=== PATIENT | female | born 2000 | race Asian ===

== ENCOUNTER 2025-07-12 07:48 | Outpatient (REF) | payer OTHER, SELFPAY ==
[2025-07-12 08:52] LABS: MANUAL DIFF FLAG NO
[2025-07-12 09:12] LABS: Hematocrit 39.1 % (37.0-47.0); Hemoglobin 13.0 g/dl (12.0-16.0); Imm Gran Abs Auto 0.01 X10*3/uL (0.00-0.03); Imm Gran Pct Auto 0.2 % (0.0-0.4); Lymphocytes Absolute Auto 2.0 X10*3/uL (1.2-4.9); Mean Corpuscular HGB Conc 33.2 g/dl (31.0-35.0); Mean Corpuscular Hemoglobin 29.2 pg (27.0-33.0); Mean Corpuscular Volume 87.9 fL (80.0-98.0); NRBC Abs Auto 0.000 X10*3/uL (0.0-0.012); NRBC Pct Auto 0.0 /100WBC (0.0-0.2); Platelet Count 146 X10*3/uL (160-400); Red Blood Count 4.45 X10*6/uL (4.20-5.50); White Blood Count 4.6 X10*3/uL (4.8-10.8)
[2025-07-12 09:42] LABS: Alanine Aminotransferase 23 U/L (0-31); Albumin Level 4.8 g/dL (3.5-5.0); Alkaline Phosphatase 45 U/L (39-117); Anion Gap 11 (12-20); Aspartate Amino Transferase 25 U/L (5-31); Blood Urea Nitrogen 15 mg/dL (9-16); Calcium 9.6 mg/dL (8.4-10.2); Carbon Dioxide 26 mmol/L (22-29); Chloride 106 mmol/L (96-108); Estimated Glomerular Filt Rate > 60; Potassium 4.3 mmol/L (3.3-5.1); Sodium 139 mmol/L (135-145); Total Protein 7.8 g/dL (6.5-8.0)
[2025-07-12 10:00] LABS: Free T4 (Free Thyroxine) 1.08 ng/dL (0.71-1.85)
[2025-07-12 10:08] LABS: Folate 8.9 ng/mL (> or = 4.0); Vitamin B12 886 pg/mL (200-900)
[2025-07-15 10:13] LABS: Anti Nuclear Antibody Screen NEGATIVE (NEGATIVE)
== END 2025-07-12 07:49 | disposition home or self-care (01) ==
LOC: HO.LAB 07:48
DX: Z00.00 Encounter for general adult medical examination without abnormal findings (principal); Z13.0 Encounter for screening for diseases of the blood and blood-forming organs and certain disorders involving the immune mechanism; Z13.21 Encounter for screening for nutritional disorder; Z13.1 Encounter for screening for diabetes mellitus; Z13.29 Encounter for screening for other suspected endocrine disorder; D69.6 Thrombocytopenia, unspecified
CPT/HCPCS: 36415; 80053; 82306; 82607; 82746; 84439; 84443; 85025; 85652; 86038; 86140; 96127; 99385

== ENCOUNTER 2025-07-12 07:48 | Outpatient (AMB) | payer OTHER, SELFPAY ==
[2025-07-12 07:53] VITALS: BP 106/72; PULSE 73; O2SAT 98; BMI 20.5
--- NOTE | 2025-07-12 07:53 | A.OFFPC_ITS ---
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 Physical annual Client Services Specialist Required: Yes Client Services Specialist Language: Danish Allergies No Known Allergies Allergy (Verified 07/12/25 07:59) Medication List - Last Reconciled 07/12/25 by Roshni Gilman PA-C No Known Home Meds Tobacco use date assessed: 07/12/25 Dental Screening Dental Screen Date: 07/12/25 Did you have a dental visit in the last 12 months?: No Did you have a dental problem in the last 6 months where you did not have access to dental care?: No Was dental information given to patient?: No HPI 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 Presenting with a wellness visit. Denies current medications, allergies, and significant past medical history. Reports regular menstrual cycles, denies control use, and has not had a Pap smear. She has no concerns today. vaccines: HPV UTD, TDaP 2021 pap smear: referral placed to sales and marketing analyst today [facility] Family History Mother No problems noted. 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 1. Little interest or pleasure in doing things: more than half the days 2. Feeling down, depressed, or hopeless: not at all 3. Trouble falling or staying asleep, or sleeping too much: not at all 4. Feeling tired or having little energy: more than half the days 5. Poor appetite or overeating: not at all 6. Feeling bad about yourself - or that you are a failure or have let yourself or your family down: not at all 7. Trouble concentrating on things, such as reading the newspaper or watching television: not at all 8. Moving or speaking so slowly that other people could have noticed. Or the opposite - being so fidgety or restless that you have been moving around a lot more than usual: not at all 9. Thoughts that you would be better off or of hurting yourself in some way: not at all Total score: 4 Depression Screening Interpretation: Negative (denies depression) Depression Screening Done: Yes 49574 - PHQ-9 Billing: Yes Source: Developed by Drs. Alec Combs, Patricia Wallace, Salbador Naranjo and colleagues, with an educational anita from [employer]. Thrive Questionnaire Date Thrive assessed: 07/12/25 I am a: Patient What is your living situation today?: I have a steady place to live Within the past 12 months, did the food you bought not last and you didn't have the money to get more?: Never true Within the past 12 months, did you worry whether your food would run out before you got money to buy more?: Never true Do you have trouble paying for medicines?: No Do you have trouble getting transportation to medical appointments?: No Do you have trouble paying your heating and electricity bill?: No Do you have trouble taking care of your child, family member or friend?: No Do you have trouble with day-to-day activities such as bathing, preparing meals, shopping, managing finances, etc.?: No Are you currently unemployed and looking for a job?: No Are you interested in more education?: Yes Please select the resources that you would like help with: None Currently or been in a relationship where the following occur: No concerns reported THRIVE Score: 0 AUDIT C Alcohol Use Questionnaire (AUDIT-C) 1. How often do you have a drink containing alcohol?: Never 2. How many drinks containing alcohol do you have on a typical day when you are drinking?: 1 or 2 3. How often do you have six or more drinks on one occasion?: Never Total Score: 0 Score Reviewed/Action Taken: Yes VIDHI-7 AMB Questionnaire VIDHI-7 Date VIDHI - 7 assessed: 07/12/25 Feeling nervous, anxious, or on edge: 0 = Not at all Not being able to stop or control worryin = Not at all Worrying too much about different things: 1 = Several days Trouble relaxin = Several days Being so restless that it is hard to sit still: 0 = Not at all Becoming easily annoyed or irritable: 0 = Not at all Feeling afraid as if something awful might happen: 0 = Not at all Total VIDHI-7 score (0-4 normal; 5-9 mild; 10-14 moderate; 15-21 severe): 2 Source: Developed by Drs. Alec Combs, Patricia Wallace, Salbador Naranjo and colleagues, with an educational anita from [employer]. VIDHI-7 Assessment Billing VIDHI-7 Assessment Tool: VIDHI-7 Assessment 19117 Review of Systems Const Denies body aches, Denies chills, Denies fever(s), Denies headache(s) and Denies poor appetite Eyes Reports no additional complaints and Denies requires corrective lenses ENT Denies dysphagia, Reports dizziness (rarely ), Denies headache(s) and Denies odynophagia Card Denies chest pain, Denies syncope, Denies edema, Denies irregular heart rhythm, Denies lightheadedness and Denies dyspnea Resp Denies dyspnea GI Denies abdominal pain, Denies bloating, Denies constipation, Denies dysphagia, Denies diarrhea, Denies nausea, Denies odynophagia and Denies vomiting Denies dysuria and Denies urinary urgency Musc Reports no additional complaints and Denies abnormal gait Skin/Breast Reports system reviewed and no additional complaints, except as documented Neuro Denies abnormal gait, Reports dizziness (rarely ), Denies syncope and Denies headache(s) Psych Reports no additional complaints Physical exam (Primary Care) Vital Signs: Oxygen Delivery Method Room Air 07/12/25 07:53 BMI result Body Mass Index 20.5 Depression Screening Interpretation: Negative (denies depression) Thrive Assessment: Date of Thrive Assessment Date Thrive assessed 07/05/25 07/05/25 13:28 Currently or been in a relationship where the following occur: No concerns reported Const General: cooperative, healthy appearing, comfortable and no acute distress Orientation/consciousness: patient oriented x3 HENMT Head: Yes normocephalic Ears: hearing grossly normal bilaterally General nose exam: Normal external nose present Face and sinus: Yes normal facial exam and Yes sinuses nontender Mouth: Normal oral and palatal mucosa present and tongue normal Throat: Yes posterior oropharynx normal Eyes General: appearance normal, both eyes and all related structures Conjunctivae: conjunctivae normal Pupils: Equal, round and reactive pupils present EOM: EOMs intact bilaterally and No Nystagmus present Neck Neck: Yes full ROM and Yes no lymphadenopathy Chest Chest palpation & inspection: normal inspection of the chest Resp Effort & Inspection: normal respiratory effort Auscultation: clear to auscultation bilaterally, no crackles, no rales, no rhonchi and no wheezes Cardio Rate: regular rate Rhythm: regular rhythm Peripheral pulses: radial pulses present and dorsalis pedis present GI Inspection: Yes normal to inspection and No Abdominal wall edema Palpation (GI): Soft to palpation, not firm and nontender Auscultation: normal bowel sounds Rectal Exam - Female: deferred General: Yes no CVA tenderness Back/Spine/Pelvis Back: no CVA tenderness Skin General skin exam: no rashes or lesions noted Neuro General: patient oriented x3 Cranial nerves: Yes Equal, round and reactive pupils present, Yes Midline tongue present, Yes Ability to bilaterally elevate shoulders present and No Nystagmus present Gait exam (Neuro): Normal gait present Extrem General: Yes normal to inspection, Yes full ROM and No edema Psych Speech and movement: Normal speech and movement present Affect: normal affect Attitude: cooperative Insight: Good insight present (Psych) Judgement: Good judgement present (Psych) Coding Level of Care Code New Pt Prev Care 18-39yr(55308 Diagnoses Annual physical exam Z00.00 Additional Codes VIDHI-7 Assessment Billing - VIDHI-7 Assessment Tool: VIDHI-7 Assessment 15943 ([id number]) PHQ-9 - 42610 - PHQ-9 Billing: Yes ([id number]) Assessment & Plan Assessment & Plan (1) Annual physical exam: Code(s): Z00.00 - Encounter for general adult medical examination without abnormal findings Category: Medical Plan: Patient has no concerns today and is feeling generally well. She is overdue for pap smear and referral placed to sales and marketing analyst today. She is due for blood work which has been ordered today. She is up to date on all recommended vaccinations for her age and will be due for flu shot in the coming months. She will follow up yearly or sooner as needed. Plan This note was constructed using voice recognition software. While every effort has been made to ensure accuracy and tourist cabin keeper, still areas may have been included sometimes these areas may affect the content or meeting of the given symptoms. Total time spent caring for the patient today was 30 minutes. This includes time spent before the visit reviewing the chart, time spent during the visit, and time spent after the visit and documentation. Patient was informed and verbally consented to the use of an ambient scribe for clinic note documentation during this visit. Orders: Orders Complete Blood Count Auto Diff Today Z00.00 - Encounter for general adult medical examination without abnormal findings, Z13.0 - Encounter for screening for diseases of the blood and blood-forming organs and certain disorders involving the immune mechanism TSH reflex Free T4 Today Z13.29 - Encounter for screening for other suspected endocrine disorder Vitamin B12 and Folate Today Z13.21 - Encounter for screening for nutritional disorder Vitamin D 25-OH Total Today Z13.21 - Encounter for screening for nutritional disorder Free T4 (Free Thyroxine) Today Z00.00 - Encounter for general adult medical examination without abnormal findings Comprehensive Met. Panel Today Z00.00 - Encounter for general adult medical examination without abnormal findings, Z13.1 - Encounter for screening for diabetes mellitus Referrals PIN INSERTER Referral Z12.4 - Encounter for screening for malignant neoplasm of cervix
== END 2025-07-12 08:30 | disposition home or self-care (01) ==
LOC: HO.HMCH 07:49
DX: Z00.00 Encounter for general adult medical examination without abnormal findings (principal)